=== PATIENT | female | born 1970 | race American Indian/Alaskan Native ===

== ENCOUNTER 2018-03-31 04:59 | Emergency (ER) | payer BC ==
[2018-03-31] MEDS ORDERED: BENADRYL ONE (05:17)
[2018-03-31] MEDS ORDERED: DECADRON ONE (05:18)
[2018-03-31] MEDS ORDERED: BENADRYL IM ONE (05:26)
[2018-03-31] MEDS ORDERED: DECADRON IM ONE (05:27)
[2018-03-31] MEDS ORDERED: PEPCID ONE (06:44)
--- NOTE | 2018-03-31 06:51 | Emergency Department Report ---
HPI - General Chief Complaint: Allergic Reaction Time Seen by Provider: 03/31/18 06:46 - HPI HPI: 47-year-old -[place] female comes in status post allergic reaction to bananas. Patient reports that she ate a banana about 3:30 this morning prior to going to sleep in at 4 AM she started having burning sensation to her mouth or gums were hurting her face is still swollen and she was having some difficulty breathing. Patient reports she is unaware of any allergies to bananas. Patient has no other concerns at this moment. ED Past Medical Hx - Past Medical History Previous Medical History?: Yes Hx Hypertension: Yes (resolved htn) - Surgical History Past Surgical History?: No Additional Surgical History: partial hysterectomy, 2016. oral sx, 2016 - Social History Smoking Status: Never Smoker Substance Use Type: None - Medications Home Medications: Home Medications Medication Instructions Recorded Confirmed Last Taken Type Amlodipine Besylate [Norvasc] 2.5 mg PO QDAY #30 tablet 03/31/18 Unknown Rx ED Review of Systems ROS: Stated complaint: ALLERGIC REACTION SWELLING OF LIPS SHORTNESS OF B Other details as noted in HPI Eyes: denies: eye pain, eye discharge, vision change ENT: throat pain Respiratory: shortness of breath Cardiovascular: denies: chest pain Endocrine: no symptoms reported Gastrointestinal: denies: abdominal pain, nausea, diarrhea Genitourinary: denies: urgency, dysuria, discharge Musculoskeletal: denies: back pain, joint swelling, arthralgia Skin: denies: rash, lesions Neurological: denies: headache, weakness, paresthesias Psychiatric: denies: anxiety, depression Hematological/Lymphatic: denies: easy bleeding, easy bruising Physical Exam - Physical Exam Vital Signs: Vital Signs 03/31/18 05:06 Temperature 97.7 F Pulse Rate 77 Respiratory 18 Rate Blood Pressure 169/120 O2 Sat by Pulse 98 Oximetry General: No acute distress Physical Exam: GENERAL: Alert and oriented x3, no apparent distress, Normal Gait, atraumatic. HEAD: Head is normocephalic and a-traumatic. EYES: Extra ocular muscles are intact. Pupils are equal, round, and reactive to light and accommodation. MOUTH:Mouth is well hydrated and without lesions. Mucous membranes are moist. Posterior pharynx clear, no exudate or lesions. Patent airways. NECK: Supple. Non edematous, No carotid bruits. No lymphadenopathy or thyromegaly. LUNGS: Symetrical with respiration, No wheezing, no rales or crackles, CTAB. HEART: S1, S2 present, regular rate and rhythm without murmur, no rubs, no gallops. EXTREMITIES/MUSCULOSKELETAL: No cyanosis, clubbing, rash, lesions or edema. Full ROM bilaterally. NEUROLOGIC: No focal Deficit, Cranial nerves II through XII are grossly intact. No loss of sensation, PSYCHIATRIC: Mood is congruent with affect, denies suicidal or homicidal ideations. SKIN: Warm and dry, No lesions, No ulceration or induration present ED Course Vital Signs 03/31/18 05:06 Temperature 97.7 F Pulse Rate 77 Respiratory 18 Rate Blood Pressure 169/120 O2 Sat by Pulse 98 Oximetry - Reevaluation(s) Reevaluation #1: 03/31/18 06:54 Patient reports that she feels much much better after having the medication. ED Medical Decision Making - Medical Decision Making Patient has been evaluated by this provider fashion. Patient was giving Decadron, Benadryl and we will give her Pepcid before she discharges. Critical care attestation.: If time is entered above; I have spent that time in minutes in the direct care of this critically ill patient, excluding procedure time. ED Disposition Clinical Impression: Food allergic skin reaction Hypertension Qualifiers: Hypertension type: unspecified Qualified Code(s): I10 - Essential (primary) hypertension Disposition: DC-01 TO HOME OR SELFCARE Is pt being admited?: No Does the pt Need Aspirin: No Condition: Stable Instructions: Food Allergy (ED), Allergies (ED), Hypertension (ED) Additional Instructions: You can take Benadryl for the next few days if he felt like he is still having some discomfort. I recommend to avoid bananas. Follow-up which her primary care provider if symptoms persist or gets worse. Prescriptions: Amlodipine Besylate [Norvasc] 2.5 mg PO QDAY #30 tablet Referrals: PRIMARY CARE, [Primary Care Provider] - 3-5 Days [facility] [Provider Group] - 3-5 Days Forms: Work/School Release Form(ED)
[2018-03-31 06:56] VITALS: BP 140/102
[2018-03-31] MEDS ORDERED: PEPCID PO ONE (06:57)
== END 2018-03-31 06:58 | disposition home or self-care (01) ==
LOC: ED 04:59
DX: T78.1XXA Other adverse food reactions, not elsewhere classified, initial encounter (principal); I10 Essential (primary) hypertension; Z90.711 Acquired absence of uterus with remaining cervical stump
CPT/HCPCS: 96372; 99282; J1100; J1200